=== PATIENT | female | born 2000 | race Caucasian/White ===

== ENCOUNTER 2021-04-12 14:27 | Inpatient (IN) | payer OTHER, SELFPAY ==
[2021-04-12 15:25] VITALS: BMI 23.8
[2021-04-12 16:11] VITALS: BP 119/93; PULSE 68; TEMP 36.7; O2SAT 99
--- NOTE | 2021-04-12 16:17 | PC.NURSE ---
Pt signed a 3-day notice 04/12/21, up on 04/17/21
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
[2021-04-13 06:00] VITALS: BP 120/69; PULSE 75; RESP 16; TEMP 36.2; O2SAT 98
[2021-04-13] MEDS: Escitalopram Oxalate 5 MG TABLET PO (08:33)
--- NOTE | 2021-04-13 11:08 | P.CONIM_ITS ---
History of Present Illness Data of Consult Service Date: 04/13/21 Primary Care Provider: Unknown Physician HPI Reason for consult: Routine Medical H&P This is a 20 yo F with no significant PMH who is admitted to the inpatient psychiatric unit. Medical consultation requested for routine medical H&P per protocol. Patient is seen and examined in her room. She denies any medical history and denies any medical complaints. Review of Systems Review of Systems: no cp, no sob, no cough, no abd pain Yes all other systems are reviewed and are negative REPLACED BY [facility] Medical History (Updated 04/13/21 @ 11:13 by Eduardo Yip MD) No pertinent past medical history Pertinent family history: ovarian cancer in her maternal grandmother Surgical History (Updated 04/13/21 @ 11:11 by Eduardo Yip MD) No pertinent past surgical history Social History Household Members: None Housing: Unknown / Unable to assess Do you presently have visiting nurse or other home services: No Patient Tobacco Use Status: Never used Tobacco Use of substances other than those prescribed or required for medical reasons: No Substance Use Type: Unknown Currently Displaying Signs/Symptoms of Drug Intoxication Withdrawal: No Any prior treatment program specific to substance use: No Have you been hit, kicked, punched, or otherwise hurt by someone within the past year? If so, by whom?: No Do you feel safe in your current relationship?: No Is there a partner from a previous relationship who is making you feel unsafe now?: No Are you made to feel afraid or neglected: No Advance Directives: No Advance Directives Information Provided: No Do you have thoughts of harming others: None Do you have a plan to hurt others: No Plan Recently lost weight without trying: Unsure How much weight loss: Unsure Eating poorly because of decreased appetite: No Nutrition screen score: 4 Nutrition Risks: No Nutritional Risk Patient : No : No Poor oral hygiene: No Meds Allergies Allergy/AdvReac Type Severity Reaction Status Date / Time No Known Allergies Allergy Verified 04/12/21 16:29 Active Medications: Current Medications Acetaminophen (Acetaminophen 325 Mg Tablet) 650 mg PO Q6H PRN PRN Reason: Headache/Pain Mild Scale (1-3) Al Hydroxide/Mg Hydroxide (Magnesium Hydrox/Alum Hydrox 30 Ml Oral.Susp) 30 ml PO Q6H PRN PRN Reason: Heartburn/Nausea Albuterol Sulfate (Albuterol Sulfate 90 Mcg 8 Gm Inhaler) 2 puff INHALE RQ6H PRN PRN Reason: asthma Escitalopram Oxalate (Escitalopram Oxalate 5 Mg Tablet) 5 mg PO DAILY FÉLIX Last Admin: 04/13/21 08:33 Dose: 5 mg Documented by: Hydroxyzine HCl (Hydroxyzine Hcl 25 Mg Tablet) 25 mg PO Q6H PRN PRN Reason: Anxiety Magnesium Hydroxide (Milk Of Magnesia 30 Ml Oral.Susp) 30 ml PO DAILY PRN PRN Reason: Constipation Trazodone HCl (Trazodone Hcl 50 Mg Tablet) 50 mg PO BEDTIME PRN PRN Reason: Insomnia Physical Exam Vital Signs and Narrative: Vital Signs: Last Vital Signs Temp 97.2 F 04/13/21 06:00 Pulse 75 04/13/21 06:00 Resp 16 04/13/21 06:00 BP 120/69 04/13/21 06:00 Pulse Ox 98 04/13/21 06:00 Body Mass Index 23.8 Const: Other: Constitutional - Awake and Alert, No apparent distress Eyes - PERRLA, EOMI Cardiovascular - S1S2, RRR, No edema Respiratory - Normal lung expansion, Normal respiratory effort, No respiratory distress, CTA bilaterally Gastrointestinal - NT / ND; +BS; No rebound or guarding - No CVA tenderness Extremities - no calf tenderness bilaterally, no swelling Musculoskeletal - Normal inspection, normal ROM Skin - Warm/Dry Neurological - Alert & oriented x3, No focal deficit; CN 2-12 intact bilaterally Psychological - Appropriate affect Assessment and Plan (1) Routine medical exam: Status: Acute This is a 20 yo F with no significant PMH admitted to the inpatient psych unit. Medical consult for routine medical H&P per protocol. Patient does not have active medical issues and she denies chronic medical problems. She reports she has a pcp and should f/u with them as she normally does. Medically stable, will sign off. Please reconsult if any questions. Thank you.
--- NOTE | 2021-04-13 16:34 | HO.PSYCHPN ---
Subjective Subjective Date of Service: 04/13/21 Reason For Visit: depressive disorder Subjective Notes: Conditional Voluntary and 3 Day (04/17) Interim History: Pt awake, in bed, pleasant, smiling. Reports feeling tired as she has been awake most of the night. Denies SE of initiating Lexapro. Reports no current questions or concerns. Incongruence noted to presented situation. Three day notice filed for 04/17 expiration. Medication Compliance: Yes Side effects from medications: No Attending Groups: No Review of Systems Acute medical concerns: No Medical Review of Systems: unchanged Review of Systems Review of Systems Yes all other systems are reviewed and are negative Psychiatric: Reports no additional psychiatric complaints and Reports suicidal ideation (denies) Mental Status Exam Mental Status Exam Patient Appearance: Disheveled Patient Orientation: Person, Place, Time and Situation Level of Consciousness: Alert Patient Behavior: Talkative, Anxious and Good Eye Contact Mood Description: Calm, Withdrawn and Anxious Affect Description: Calm, Withdrawn and Anxious Patient Cognition Impaired: No Ability to Follow Directions: Good Speech Pattern: Spontaneous Speech and Soft-Spoken Memory Description: Intact Hallucinations: None Delusions: Not Present Perceptual Disturbances: Depersonalization (?) Thought Process: Intact Thought Content: positive for Intact, positive for Suicidal Ideation (denies) and positive for Homicidal Ideation (denies) Depressive Symptoms: Increased Anxiety, Increased Fatigue and Thoughts of /Suicide (denies) Judgement: Fair Diagnostics Vital Signs (24Hr): Vital Signs - 24 hr 04/13/21 06:00 Temperature 97.2 F Pulse Rate 75 Respiratory Rate 16 Blood Pressure 120/69 Pulse Oximetry 98 Body Mass Index 23.8 Medications Medications Current Medications Acetaminophen (Acetaminophen 325 Mg Tablet) 650 mg PO Q6H PRN PRN Reason: Headache/Pain Mild Scale (1-3) Al Hydroxide/Mg Hydroxide (Magnesium Hydrox/Alum Hydrox 30 Ml Oral.Susp) 30 ml PO Q6H PRN PRN Reason: Heartburn/Nausea Albuterol Sulfate (Albuterol Sulfate 90 Mcg 8 Gm Inhaler) 2 puff INHALE RQ6H PRN PRN Reason: asthma Escitalopram Oxalate (Escitalopram Oxalate 5 Mg Tablet) 5 mg PO DAILY FÉLIX Last Admin: 04/13/21 08:33 Dose: 5 mg Documented by: Hydroxyzine HCl (Hydroxyzine Hcl 25 Mg Tablet) 25 mg PO Q6H PRN PRN Reason: Anxiety Magnesium Hydroxide (Milk Of Magnesia 30 Ml Oral.Susp) 30 ml PO DAILY PRN PRN Reason: Constipation Trazodone HCl (Trazodone Hcl 50 Mg Tablet) 50 mg PO BEDTIME PRN PRN Reason: Insomnia Allergies Allergies Allergy/AdvReac Type Severity Reaction Status Date / Time No Known Allergies Allergy Verified 04/12/21 16:29 Assessment & Plan Assessment & Plan (1) MDD (major depressive disorder), recurrent episode, moderate: Status: Acute Code(s): F33.1 - Major depressive disorder, recurrent, moderate (2) YESI (generalized anxiety disorder): Status: Acute Code(s): F41.1 - Generalized anxiety disorder (3) PTSD (post-traumatic stress disorder): Status: Acute Code(s): F43.10 - Post-traumatic stress disorder, unspecified Assessment and Plan: 20 yo female, new admission with a history of PTSD, Depression and YESI. Pt shared with crisis a suicide attempt on 04/10/21. She reports she closed her eyes while driving. Today she reports feeling tired and fatigued but improved. She hopes to be referred for therapy and ongoing psychopharmacology. She denies SI but acknowledged that the past days have been filled with a mixture of emotions and feelings. Plan: Continue current medication plan. Observation and discussion with pt about presenting symptoms and her response to these. Assured pt we were concerned and available to her to assist during this time. Greater than 50% of the session was spent on counseling and/or coordination of care Patient educated on: medication risk/benefits and therapeutic strategies Informed Consent: understands Reason for contiued inpatient stay Substantial Risk for: harm to self, inability to function and rapid decompensation
[2021-04-13 18:00] VITALS: BP 118/63; PULSE 66
[2021-04-14 06:00] VITALS: BP 127/64; PULSE 71; RESP 18; TEMP 36.6; O2SAT 98
[2021-04-14] MEDS: Escitalopram Oxalate 5 MG TABLET PO (08:51)
--- NOTE | 2021-04-14 12:16 | HO.PSYCHPN ---
Subjective Subjective Date of Service: 04/14/21 Reason For Visit: depressive disorder Subjective Notes: Finney Warning, Conditional Voluntary and 3 Day Interim History: Patient has been somewhat expansive on the unit some socializing stating she is changed her attitude that she is feeling supported by things put in place Medication Compliance: Yes Diagnostics Vital Signs (24Hr): Vital Signs - 24 hr 04/13/21 18:00 04/14/21 06:00 Temperature 97.8 F Pulse Rate 66 71 Respiratory Rate 18 Blood Pressure 118/63 127/64 Pulse Oximetry 98 Body Mass Index 23.8 Medications Medications Current Medications Acetaminophen (Acetaminophen 325 Mg Tablet) 650 mg PO Q6H PRN PRN Reason: Headache/Pain Mild Scale (1-3) Al Hydroxide/Mg Hydroxide (Magnesium Hydrox/Alum Hydrox 30 Ml Oral.Susp) 30 ml PO Q6H PRN PRN Reason: Heartburn/Nausea Albuterol Sulfate (Albuterol Sulfate 90 Mcg 8 Gm Inhaler) 2 puff INHALE RQ6H PRN PRN Reason: asthma Escitalopram Oxalate (Escitalopram Oxalate 5 Mg Tablet) 5 mg PO DAILY FÉLIX Last Admin: 04/14/21 08:51 Dose: 5 mg Documented by: Hydroxyzine HCl (Hydroxyzine Hcl 25 Mg Tablet) 25 mg PO Q6H PRN PRN Reason: Anxiety Magnesium Hydroxide (Milk Of Magnesia 30 Ml Oral.Susp) 30 ml PO DAILY PRN PRN Reason: Constipation Trazodone HCl (Trazodone Hcl 50 Mg Tablet) 50 mg PO BEDTIME PRN PRN Reason: Insomnia Allergies Allergies Allergy/AdvReac Type Severity Reaction Status Date / Time No Known Allergies Allergy Verified 04/12/21 16:29 Assessment & Plan Assessment & Plan (1) MDD (major depressive disorder), recurrent episode, moderate: Status: Acute Code(s): F33.1 - Major depressive disorder, recurrent, moderate Assessment and Plan: Continue to evaluate safety patient referred for outpatient treatment denying any thoughts of self-harm she has put in a 3 day notice Stating she can be stable in outpatient treatment (2) YESI (generalized anxiety disorder): Status: Acute Code(s): F41.1 - Generalized anxiety disorder (3) PTSD (post-traumatic stress disorder): Status: Acute Code(s): F43.10 - Post-traumatic stress disorder, unspecified Assessment and Plan: 20 yo female, new admission with a history of PTSD, Depression and YESI. Pt shared with crisis a suicide attempt on 04/10/21. She reports she closed her eyes while driving. Today she reports feeling tired and fatigued but improved. She hopes to be referred for therapy and ongoing psychopharmacology. She denies SI but acknowledged that the past days have been filled with a mixture of emotions and feelings. Plan: Continue current medication plan. Observation and discussion with pt about presenting symptoms and her response to these. Assured pt we were concerned and available to her to assist during this time. Greater than 50% of the session was spent on counseling and/or coordination of care Reason for contiued inpatient stay Substantial Risk for: harm to self and rapid decompensation
[2021-04-14 18:00] VITALS: BP 133/82; PULSE 71; TEMP 36.6
[2021-04-14] MEDS: traZODone HCL 50 MG TABLET PO (22:17)
[2021-04-15 06:00] VITALS: BP 153/69; PULSE 98; RESP 15; TEMP 36.3; O2SAT 97
[2021-04-15] MEDS: Escitalopram Oxalate 5 MG TABLET PO (08:39)
[2021-04-15 16:12] VITALS: BP 119/74; PULSE 70; TEMP 37
[2021-04-15] MEDS: traZODone HCL 50 MG TABLET PO (21:48)
--- NOTE | 2021-04-15 22:46 | HO.PSYCHPN ---
Subjective Subjective Date of Service: 04/15/21 Reason For Visit: depressive disorder Subjective Notes: Finney Warning, Conditional Voluntary and 3 Day Interim History: Patient continues to be social on the unit somewhat expansive states she is feeling like she can maintain herself back at school she has been offered a dorm states she is feeling out of crisis and can maintain her safety Mental Status Exam Mental Status Exam Narrative: Patient casually dressed smiling cooperative with the interview speech clear and goal directed states she had been desperate but is feeling significantly improved stating that school is helping her with a place to live that she has engaged in outpatient services. Patient somewhat expansive question depersonalization no psychotic symptoms denies thoughts of harm to herself others Diagnostics Vital Signs (24Hr): Vital Signs - 24 hr 04/15/21 06:00 04/15/21 16:12 Temperature 97.3 F 98.6 F Pulse Rate 98 70 Respiratory Rate 15 Blood Pressure 153/69 H 119/74 Pulse Oximetry 97 Body Mass Index 23.8 Medications Medications Current Medications Acetaminophen (Acetaminophen 325 Mg Tablet) 650 mg PO Q6H PRN PRN Reason: Headache/Pain Mild Scale (1-3) Al Hydroxide/Mg Hydroxide (Magnesium Hydrox/Alum Hydrox 30 Ml Oral.Susp) 30 ml PO Q6H PRN PRN Reason: Heartburn/Nausea Albuterol Sulfate (Albuterol Sulfate 90 Mcg 8 Gm Inhaler) 2 puff INHALE RQ6H PRN PRN Reason: asthma Escitalopram Oxalate (Escitalopram Oxalate 5 Mg Tablet) 5 mg PO DAILY FÉLIX Last Admin: 04/15/21 08:39 Dose: 5 mg Documented by: Hydroxyzine HCl (Hydroxyzine Hcl 25 Mg Tablet) 25 mg PO Q6H PRN PRN Reason: Anxiety Magnesium Hydroxide (Milk Of Magnesia 30 Ml Oral.Susp) 30 ml PO DAILY PRN PRN Reason: Constipation Trazodone HCl (Trazodone Hcl 50 Mg Tablet) 50 mg PO BEDTIME PRN PRN Reason: Insomnia Last Admin: 04/15/21 21:48 Dose: 50 mg Documented by: Allergies Allergies Allergy/AdvReac Type Severity Reaction Status Date / Time No Known Allergies Allergy Verified 04/12/21 16:29 Assessment & Plan Assessment & Plan (1) MDD (major depressive disorder), recurrent episode, moderate: Status: Acute Code(s): F33.1 - Major depressive disorder, recurrent, moderate Assessment and Plan: Continue to evaluate safety patient referred for outpatient treatment denying any thoughts of self-harm she has put in a 3 day notice Stating she can be stable in outpatient treatment patient's affect at times seems overly bright difficult to assess patient has 3 day notice aware of need for safety plan continued evaluation would coordinate with school coordinate with outpatient providers (2) YESI (generalized anxiety disorder): Status: Acute Code(s): F41.1 - Generalized anxiety disorder (3) PTSD (post-traumatic stress disorder): Status: Acute Code(s): F43.10 - Post-traumatic stress disorder, unspecified Assessment and Plan: 20 yo female, new admission with a history of PTSD, Depression and YESI. Pt shared with crisis a suicide attempt on 04/10/21. She reports she closed her eyes while driving. Today she reports feeling tired and fatigued but improved. She hopes to be referred for therapy and ongoing psychopharmacology. She denies SI but acknowledged that the past days have been filled with a mixture of emotions and feelings. Plan: Continue current medication plan. Observation and discussion with pt about presenting symptoms and her response to these. Assured pt we were concerned and available to her to assist during this time. Greater than 50% of the session was spent on counseling and/or coordination of care Reason for contiued inpatient stay Substantial Risk for: harm to self and rapid decompensation
[2021-04-16 06:00] VITALS: BP 109/55; PULSE 61; RESP 18; TEMP 36.7; O2SAT 98
[2021-04-16] MEDS: Escitalopram Oxalate 5 MG TABLET PO (08:02)
[2021-04-16 18:00] VITALS: BP 127/81; PULSE 75; RESP 20; TEMP 36.9; O2SAT 98
--- NOTE | 2021-04-16 20:01 | HO.PSYCHPN ---
Subjective Subjective Date of Service: 04/16/21 Reason For Visit: depressive disorder Subjective Notes: Conditional Voluntary Healthcare Proxy: No Guardianship: No Medical Problems Affecting Mental Status: No Interim History: Nyad reviewed precipitants to admission. Discussed recent break up with boyfriend and as a result loss of her housing. Discussed correction discord with family who lives locally-states they have decided to not acknowledge her due to her sexual preferences. 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 The attempt she reports was driving with her eyes closed as she felt there were no options-homeless, no food, no support, no therapy, no options. She changed her mind she reports when she thought of harming someone else- what if I lived and I killed someone else-I could not live with myself. States that when she asked for help she was overwhelmed with the positive response- her dre offered her a dorm room, a meal plan, accomodations to make up missed work and an agreement that she could live in the dorm during school breaks. REPORT CLERK offered out pt therapy and medication mgt. [facility] fed her and gave her a bed and [facility] offered a safe in pt environment to allow her to put things together to begin a new chapter of her life. She was tearful when discussing this and feeling overwhelmed with the positive response all had given. States she is prepared to return to school (dorm is available today). Will discharge on 04/17. Medication Compliance: Yes Side effects from medications: No Attending Groups: Yes Review of Systems Acute medical concerns: No Medical Review of Systems: unchanged Review of Systems Psychiatric: Reports no additional psychiatric complaints and Reports suicidal ideation (denies) Mental Status Exam Mental Status Exam Patient Appearance: Appropriate Patient Orientation: Person, Place, Time and Situation Level of Consciousness: Awake and Alert Patient Behavior: Appropriate, Talkative and Cooperative Mood Description: Calm Affect Description: Calm Patient Cognition Impaired: No Ability to Follow Directions: Good Speech Pattern: Clear, Appropriate and Spontaneous Speech Memory Description: Intact Hallucinations: None Delusions: Not Present Thought Process: Intact Thought Content: positive for Intact and positive for Goal Oriented Diagnostics Vital Signs (24Hr): Vital Signs - 24 hr 04/16/21 06:00 04/16/21 18:00 Temperature 98.1 F 98.5 F Pulse Rate 61 75 Respiratory Rate 18 20 Blood Pressure 109/55 L 127/81 Pulse Oximetry 98 98 Body Mass Index 23.8 Medications Medications Current Medications Acetaminophen (Acetaminophen 325 Mg Tablet) 650 mg PO Q6H PRN PRN Reason: Headache/Pain Mild Scale (1-3) Al Hydroxide/Mg Hydroxide (Magnesium Hydrox/Alum Hydrox 30 Ml Oral.Susp) 30 ml PO Q6H PRN PRN Reason: Heartburn/Nausea Albuterol Sulfate (Albuterol Sulfate 90 Mcg 8 Gm Inhaler) 2 puff INHALE RQ6H PRN PRN Reason: asthma Escitalopram Oxalate (Escitalopram Oxalate 5 Mg Tablet) 5 mg PO DAILY FÉLIX Last Admin: 04/16/21 08:02 Dose: 5 mg Documented by: Hydroxyzine HCl (Hydroxyzine Hcl 25 Mg Tablet) 25 mg PO Q6H PRN PRN Reason: Anxiety Magnesium Hydroxide (Milk Of Magnesia 30 Ml Oral.Susp) 30 ml PO DAILY PRN PRN Reason: Constipation Trazodone HCl (Trazodone Hcl 50 Mg Tablet) 50 mg PO BEDTIME PRN PRN Reason: Insomnia Last Admin: 04/15/21 21:48 Dose: 50 mg Documented by: Allergies Allergies Allergy/AdvReac Type Severity Reaction Status Date / Time No Known Allergies Allergy Verified 04/12/21 16:29 Assessment & Plan Assessment & Plan (1) MDD (major depressive disorder), recurrent episode, moderate: Status: Acute Code(s): F33.1 - Major depressive disorder, recurrent, moderate Assessment and Plan: Continue Lexapro. Discharge 04/17. Pt plans to return to her course work (2) YESI (generalized anxiety disorder): Status: Acute Code(s): F41.1 - Generalized anxiety disorder (3) PTSD (post-traumatic stress disorder): Status: Acute Code(s): F43.10 - Post-traumatic stress disorder, unspecified Greater than 50% of the session was spent on counseling and/or coordination of care Patient educated on: therapeutic strategies Informed Consent: understands Reason for contiued inpatient stay Substantial Risk for: harm to self, harm to others and rapid decompensation
[2021-04-16] MEDS: hydrOXYzine HCL 25 MG TABLET PO (23:08)
[2021-04-17 06:00] VITALS: BP 112/73; PULSE 56; RESP 18; TEMP 36.7; O2SAT 100
[2021-04-17] MEDS: Escitalopram Oxalate 5 MG TABLET PO (08:11)
--- NOTE | 2021-04-17 11:31 | P.DS_ITS ---
DS: Providers Provider Date of Service: 04/17/21 Date of admission: 04/12/21 14:27 Date of discharge: 04/17/21 Primary care physician: Unknown Physician Admitting clinician: Ramona Powell Attending physician on admission: Mike Castillo Consults: 04/12/21 16:29 Consult to Hospitalist Routine Consulting Provider: Hospitalist Reason For Exam: transfer from another facility Attending physician on discharge: Mike Castillo Discharging clinician: Bela Chow DS: Diagnosis Discharge Diagnosis (1) MDD (major depressive disorder), recurrent episode, moderate: Status: Acute (2) YESI (generalized anxiety disorder): Status: Acute (3) PTSD (post-traumatic stress disorder): Status: Acute DS: Medications Discharge Medications Home Medications: Previous Rx's Medication Instructions Recorded albuterol sulfate 90 mcg/actuation 2 puff INHALATION RQ6H PRN #1 g 04/17/21 aerosol inhaler (Ventolin HFA) escitalopram oxalate 5 mg tablet 5 mg PO DAILY #30 tab 04/17/21 trazodone 50 mg tablet 50 mg PO BEDTIME PRN #15 tab 04/17/21 Mental Status Exam Mental Status Exam Patient Appearance: Appropriate Patient Orientation: Person, Place, Time and Situation Level of Consciousness: Awake and Alert Patient Behavior: Appropriate, Talkative and Cooperative Mood Description: Calm Affect Description: Calm Patient Cognition Impaired: No Ability to Follow Directions: Good Speech Pattern: Clear, Appropriate and Spontaneous Speech Memory Description: Intact Hallucinations: None Delusions: Not Present Thought Process: Intact Thought Content: positive for Intact and positive for Goal Oriented DS: Summary Hospital Course Hospital Course: Pt admitted on a conditional voluntary and signed a three day notice on admission. Sertraline initiated without side effects. 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 She discussed the conflict with her family and their estrangement from her along with losses of family and boyfriend. She reported feeling more hopeful regarding her future now that basics were in place, she could continue her course work and re-plan for her future. Time spent discussing smoking cessation with patient: 3 to 10 minutes Status at Discharge Cognitive/behavioral status at discharge: Alert, oriented, non-psychotic, non- suicidal Functional status at discharge: independent ambulation Overall status at discharge: patient is progressing back to baseline Time Spent with Patient Time attestation: Total time spent providing and/or coordinating discharge services:20 Time spent: Less than 30 minutes Discharge Plan Discharge Anticipated Discharge Date/Time: 04/17/21 12:46 Patient Disposition: Xfer Other Discharge Diagnosis: Major Depression, Recurrent YESI PTSD Referrals: Tiny Guillen (therapists) [facility] [Other] - 04/18/21 12:00 pm (Initial appointment with Tiny Guillen on 04/18/21 @ 12 PM in office visit.) Errol Ferraro (psychiatrists) [facility] [Other] - 05/11/21 9:00 am (Initial appointment scheduled for Tuesday, May 11, 2021 @ 9 AM via telehealth/phone. Then second appt scheduled for Saturday, June 05, 2021 @ 4 PM via telehealth/phone.) Sahil Mccracken MD [Physician] - 04/18/21 2:30 pm (AMBAR AHUJA IS COVERING IN OFFICE) Discharge Medications: New trazodone 50 mg Tablet 50 mg PO BEDTIME PRN (Reason: Insomnia) Qty: 15 RF: 0 albuterol sulfate [Ventolin HFA] 90 mcg/actuation Hfa Aerosol Inhaler 2 puff inhalation RQ6H PRN (Reason: asthma ) Qty: 1 RF: 0 escitalopram oxalate 5 mg Tablet 5 mg PO DAILY Qty: 30 RF: 0 Discharge Orders: Discharge Order (Routine); Ordered 04/17/21 Ordered By: Bela Chow Diet: advance to usual diet Activity on Discharge: As tolerated Stand Alone Forms: Patient Portal Discharge page, Community Support Care Plan Goals: Mood stability Health Concerns: Depression Anxiety PTSD Plan of Treatment: Attend scheduled appointments Take medications as directed Utilize support services/crisis services as needed Assessment: non-psychotic, non-suicidal Discharge Date/Time: 04/17/21 14:35
== END 2021-04-17 14:35 | disposition other institution (70) | DRG 751 ==
PROVIDERS: Admitting Provider Psychiatry & Neurology Psychiatry; Visit Provider Clinical Nurse Specialist Psychiatric/Mental Health, Adult
DX: F33.1 Major depressive disorder, recurrent, moderate (principal); R45.851 Suicidal ideations; F41.1 Generalized anxiety disorder; F43.10 Post-traumatic stress disorder, unspecified; Z59.02 Unsheltered homelessness; Z79.899 Other long term (current) drug therapy